=== PATIENT | male | born 2000 | race Caucasian/White ===

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

== ENCOUNTER 2021-07-01 14:04 | Emergency (ER) | payer OTHER ==
[~2021-07-01] VITALS: Ht 177.8 cm; Wt 87.3 kg
[2021-07-01] MEDS ORDERED: MORPHINE 4 MG/ML 1ML VIAL/SYRINGE (J2270) IV ONE (15:05)
[2021-07-01] MEDS ORDERED: ONDANSETRON 4MG/2ML VIAL IV ONE (15:05)
[2021-07-01] MEDS ORDERED: NS 1,000 ML IV ONE (15:30)
[2021-07-01 15:33] LABS: BASO # 0.1 10^3/uL (0.0-0.2); BASO % 0.7 % (0.0-1.0); EOS # 0.7 10^3/uL (0.0-0.5); EOS % 4.5 % (0.0-3.0); HEMATOCRIT 48.9 % (42.0-52.0); HEMOGLOBIN 16.8 g/dl (13.5-17.5); LYMPH # 1.5 10^3/uL (1.5-5.0); LYMPH % 10.3 % (24.0-44.0); MEAN CORPUSCULAR HEMOGLOBIN 30.7 pg (27.0-33.0); MEAN CORPUSCULAR HGB CONC 34.4 g/dl (32.0-36.5); MEAN CORPUSCULAR VOLUME 89.2 fl (80.0-96.0); MONO # 0.9 10^3/uL (0.0-0.8); MONO % 5.8 % (2.0-8.0); NEUTROPHILS # 11.7 10^3/uL (1.5-8.5); NEUTROPHILS % 78.2 % (36.0-66.0); PLATELET COUNT, AUTOMATED 255 10^3/uL (150-450); RED BLOOD COUNT 5.48 10^6/uL (4.30-6.10); WHITE BLOOD COUNT 14.9 10^3/uL (4.0-10.0)
[2021-07-01 15:48] LABS: ALBUMIN 4.3 GM/DL (3.2-5.2); ALT/SGPT 211 U/L (12-78); BILIRUBIN,DIRECT 0.1 MG/DL (0.0-0.2); BILIRUBIN,TOTAL 0.6 MG/DL (0.2-1.0); BLOOD UREA NITROGEN 16 MG/DL (7-18); CALCIUM LEVEL 9.5 MG/DL (8.5-10.1); CARBON DIOXIDE LEVEL 25 MEQ/L (21-32); CHLORIDE LEVEL 106 MEQ/L (98-107); CREATININE FOR GFR 0.79 MG/DL (0.70-1.30); GLUCOSE, FASTING 107 MG/DL (70-100); LIPASE 68 U/L (73-393); POTASSIUM SERUM 4.1 MEQ/L (3.5-5.1); SODIUM LEVEL 138 MEQ/L (136-145); TOTAL PROTEIN 7.6 GM/DL (6.4-8.2)
[2021-07-01] MEDS ORDERED: ISOVUE-370 76% 100ML VIAL As Ordered ONE (15:57)
[2021-07-01 17:32] LABS: MONO SCRN NEGATIVE (NEGATIVE)
[2021-07-01] MEDS ORDERED: ONDA4TAB6 PO (18:01)
[2021-07-01 18:09] LABS: RSV AMPLIFICATION NEGATIVE (NEGATIVE)
[2021-07-01 18:12] VITALS: BP 121/70
[2021-07-02 08:49] LABS: HEPATITIS B SURFACE ANTIGEN NEGATIVE (NEGATIVE)
[2021-07-02 09:17] LABS: HEPATITIS C VIRUS ABY INDEX 0.2 INDEX (<0.8)
[2021-07-02 09:18] LABS: HEPATITIS B CORE ANTIBODY IGM NEGATIVE (NEGATIVE)
== END 2021-07-01 18:14 | disposition home or self-care (01) ==
LOC: M ED 14:04
DX: R94.5 Abnormal results of liver function studies (principal); K56.7 Ileus, unspecified; J45.909 Unspecified asthma, uncomplicated; F41.9 Anxiety disorder, unspecified; F31.89 Other bipolar disorder; F90.9 Attention-deficit hyperactivity disorder, unspecified type; K90.0 Celiac disease; F12.10 Cannabis abuse, uncomplicated
CPT/HCPCS: 74177; 80047; 80048; 80076; 81001; 83690; 85025; 86308; 86705; 86709; 86803; 87340; 87631; 96361; 96374; 99284; J2405; Q9967

== ENCOUNTER 2022-01-23 17:12 | Emergency (ER) | payer OTHER ==
[~2022-01-23] VITALS: Ht 177.8 cm; Wt 78.4 kg
[~2022-01-23 17:12] MED LIST changes: +ONDA4TAB6 PO
[2022-01-23] MEDS ORDERED: PARO5TAB (17:22)
[2022-01-23] MEDS ORDERED: ESCITALOPRAM (17:22)
[2022-01-23 19:46] LABS: BASO # 0.1 10^3/uL (0.0-0.2); BASO % 0.5 % (0.0-1.0); EOS # 0.1 10^3/uL (0.0-0.5); EOS % 0.8 % (0.0-3.0); HEMATOCRIT 41.5 % (42.0-52.0); HEMOGLOBIN 14.7 g/dl (13.5-17.5); LYMPH # 1.7 10^3/uL (1.5-5.0); LYMPH % 13.6 % (24.0-44.0); MEAN CORPUSCULAR HEMOGLOBIN 31.1 pg (27.0-33.0); MEAN CORPUSCULAR HGB CONC 35.4 g/dl (32.0-36.5); MEAN CORPUSCULAR VOLUME 87.9 fl (80.0-96.0); MONO # 0.8 10^3/uL (0.0-0.8); MONO % 6.6 % (2.0-8.0); NEUTROPHILS # 9.7 10^3/uL (1.5-8.5); PLATELET COUNT, AUTOMATED 287 10^3/uL (150-450); RED BLOOD COUNT 4.72 10^6/uL (4.30-6.10); WHITE BLOOD COUNT 12.5 10^3/uL (4.0-10.0)
[2022-01-23 20:28] LABS: ALBUMIN 4.7 GM/DL (3.2-5.2); ALT/SGPT 20 U/L (12-78); BILIRUBIN,DIRECT 0.3 MG/DL (0.0-0.2); BILIRUBIN,TOTAL 1.3 MG/DL (0.2-1.0); BLOOD UREA NITROGEN 17 MG/DL (7-18); CARBON DIOXIDE LEVEL 22 MEQ/L (21-32); CHLORIDE LEVEL 105 MEQ/L (98-107); CREATININE FOR GFR 0.98 MG/DL (0.70-1.30); GLUCOSE, FASTING 84 MG/DL (70-100); LIPASE 75 U/L (73-393); SODIUM LEVEL 137 MEQ/L (136-145)
[2022-01-23] MEDS ORDERED: PRIL20TA2 PO (22:10)
[2022-01-23 22:15] VITALS: BP 139/80
== END 2022-01-23 22:16 | disposition home or self-care (01) ==
LOC: M ED 17:12
DX: R10.9 Unspecified abdominal pain (principal); I10 Essential (primary) hypertension; Z91.02 Food additives allergy status

== ENCOUNTER 2022-01-26 11:42 | Emergency (ER) | payer OTHER ==
[~2022-01-26 11:42] MED LIST changes: +ESCITALOPRAM; +PARO5TAB; +PRIL20TA2 PO
[2022-01-26 12:44] LABS: BASO # 0.1 10^3/uL (0.0-0.2); BASO % 0.9 % (0.0-1.0); EOS # 0.1 10^3/uL (0.0-0.5); EOS % 2.2 % (0.0-3.0); HEMATOCRIT 43.6 % (42.0-52.0); HEMOGLOBIN 15.1 g/dl (13.5-17.5); LYMPH # 1.1 10^3/uL (1.5-5.0); LYMPH % 17.8 % (24.0-44.0); MEAN CORPUSCULAR HEMOGLOBIN 30.9 pg (27.0-33.0); MEAN CORPUSCULAR HGB CONC 34.6 g/dl (32.0-36.5); MEAN CORPUSCULAR VOLUME 89.2 fl (80.0-96.0); MONO # 0.6 10^3/uL (0.0-0.8); MONO % 9.2 % (2.0-8.0); NEUTROPHILS # 4.5 10^3/uL (1.5-8.5); NEUTROPHILS % 69.4 % (36.0-66.0); PLATELET COUNT, AUTOMATED 257 10^3/uL (150-450); RED BLOOD COUNT 4.89 10^6/uL (4.30-6.10); WHITE BLOOD COUNT 6.4 10^3/uL (4.0-10.0)
[2022-01-26 13:38] LABS: ALBUMIN 4.7 GM/DL (3.2-5.2); ALT/SGPT 24 U/L (12-78); BILIRUBIN,DIRECT 0.2 MG/DL (0.0-0.2); BILIRUBIN,TOTAL 0.7 MG/DL (0.2-1.0); BLOOD UREA NITROGEN 15 MG/DL (7-18); CALCIUM LEVEL 9.8 MG/DL (8.5-10.1); CARBON DIOXIDE LEVEL 27 MEQ/L (21-32); CHLORIDE LEVEL 105 MEQ/L (98-107); CREATININE FOR GFR 1.03 MG/DL (0.70-1.30); GLUCOSE, FASTING 102 MG/DL (70-100); LIPASE 116 U/L (73-393); POTASSIUM SERUM 4.1 MEQ/L (3.5-5.1); SODIUM LEVEL 135 MEQ/L (136-145); TOTAL PROTEIN 8.6 GM/DL (6.4-8.2)
[2022-01-26] MEDS ORDERED: ISOVUE-370 76% 100ML VIAL As Ordered ONE (13:44)
[2022-01-26 14:41] VITALS: BP 124/69
== END 2022-01-26 14:43 | disposition home or self-care (01) ==
LOC: M ED 11:42
DX: R10.9 Unspecified abdominal pain (principal); Z87.19 Personal history of other diseases of the digestive system; F41.9 Anxiety disorder, unspecified; F32.9 Major depressive disorder, single episode, unspecified; F90.9 Attention-deficit hyperactivity disorder, unspecified type; Z79.899 Other long term (current) drug therapy
CPT/HCPCS: 71046; 74177; 80048; 80076; 83690; 85025; 93005; 93041; 99284; Q9967

== ENCOUNTER 2022-01-28 16:24 | Emergency (ER) | payer OTHER ==
[~2022-01-28] VITALS: Ht 177.8 cm; Wt 76.8 kg
[2022-01-28 16:25] VITALS: BP 141/91
== END 2022-01-28 17:32 | disposition left against medical advice (07) ==
LOC: M ED 16:24
DX: Z53.21 Procedure and treatment not carried out due to patient leaving prior to being seen by health care provider (principal)

== ENCOUNTER 2022-05-22 20:23 | Emergency (ER) | payer OTHER ==
[~2022-05-22] VITALS: Ht 177.8 cm; Wt 86.9 kg
[2022-05-22 20:23] VITALS: BP 136/67
[~2022-05-22 20:23] MED LIST changes: +NYST-38 PO; -NYST50SS PO
== END 2022-05-22 22:54 | disposition left against medical advice (07) ==
LOC: M ED 20:23
DX: Z53.21 Procedure and treatment not carried out due to patient leaving prior to being seen by health care provider (principal)

== ENCOUNTER 2023-08-03 23:56 | Emergency (ER) | payer OTHER ==
[~2023-08-03] VITALS: Ht 177.8 cm; Wt 96.5 kg
[~2023-08-03 23:56] MED LIST changes: +CARA1TAB6 PO
[2023-08-03 23:57] VITALS: BP 139/68; TEMP 98; O2SAT 97
== END 2023-08-04 02:06 | disposition left against medical advice (07) ==
LOC: M ED 23:56
DX: Z53.21 Procedure and treatment not carried out due to patient leaving prior to being seen by health care provider (principal)

== ENCOUNTER 2023-11-11 14:26 | Emergency (ER) | payer OTHER ==
[~2023-11-11] VITALS: Ht 180.3 cm; Wt 87.5 kg
[~2023-11-11 14:26] MED LIST changes: +ONDA-282 PO; -ONDA4TAB6 PO
[2023-11-11 14:27] VITALS: BP 131/72; TEMP 98.2; O2SAT 98
== END 2023-11-11 16:00 | disposition left against medical advice (07) ==
LOC: M ED 14:26
DX: Z53.21 Procedure and treatment not carried out due to patient leaving prior to being seen by health care provider (principal)

== ENCOUNTER 2023-12-29 08:52 | Emergency (ER) | payer OTHER ==
[~2023-12-29] VITALS: Ht 177.8 cm; Wt 85.6 kg
[2023-12-29 09:02] VITALS: BP 132/68; TEMP 97.1; O2SAT 99
[2023-12-29] MEDS ORDERED: ISOVUE-370 76% 100ML VIAL As Ordered ONE (10:08)
== END 2023-12-29 12:02 | disposition home or self-care (01) ==
LOC: EDBD 08:52 → M ED 08:52
DX: T71.193A Asphyxiation due to mechanical threat to breathing due to other causes, assault, initial encounter (principal); K21.9 Gastro-esophageal reflux disease without esophagitis
CPT/HCPCS: 70450; 70498; 80047; 99284; Q9967

== ENCOUNTER 2024-06-29 13:33 | Emergency (ER) | payer OTHER ==
[~2024-06-29] VITALS: Ht 177.8 cm; Wt 113.6 kg
[2024-06-29 15:01] VITALS: BP 141/97; TEMP 98.6; O2SAT 100
== END 2024-06-29 15:08 | disposition left against medical advice (07) ==
LOC: M ED 13:33
DX: Z53.21 Procedure and treatment not carried out due to patient leaving prior to being seen by health care provider (principal)

== ENCOUNTER 2024-10-30 07:52 | Emergency (ER) | payer OTHER ==
[~2024-10-30] VITALS: Ht 177.8 cm; Wt 112.9 kg
[2024-10-30 07:58] VITALS: TEMP 98.1
[2024-10-30] MEDS ORDERED: ACET500P3 PO (08:06)
[2024-10-30] MEDS: KETOROLAC 30 MG/ML 1 ML VIAL IM ONE (11:07)
[2024-10-30] MEDS: CYCLOBENZAPRINE 5 MG TABLET PO ONE (11:08)
[2024-10-30 11:37] VITALS: BP 133/74
[2024-10-30 11:47] LABS: KETONE, URINE AUTO RFX NEGATIVE (NEGATIVE); LEUKOCYTE ESTERASE UR AUTO RFX NEGATIVE (NEGATIVE); MUCUS, URINE RFX SMALL (NEGATIVE); NITRITE, URINE AUTO RFX NEGATIVE (NEGATIVE); RBC, URINE AUTO RFX 1 /HPF (0-3); SQUAM EPITHELIAL CELL UR AURFX 0 /HPF (0-6); WBC, URINE AUTO RFX 1 /HPF (0-3)
[2024-10-30 13:22] VITALS: O2SAT 97
[2024-10-30] MEDS ORDERED: MEDR4PAK PO (13:41)
[2024-10-30] MEDS ORDERED: CYCL-707 PO (13:41)
== END 2024-10-30 14:27 | disposition home or self-care (01) ==
LOC: M ED 07:52
DX: M54.50 Low back pain, unspecified (principal); D17.1 Benign lipomatous neoplasm of skin and subcutaneous tissue of trunk; F90.9 Attention-deficit hyperactivity disorder, unspecified type; J45.909 Unspecified asthma, uncomplicated
CPT/HCPCS: 71046; 72110; 76604; 81001; 96372; 99284; J1885

== ENCOUNTER 2025-02-22 02:44 | Emergency (ER) | payer OTHER ==
[~2025-02-22] VITALS: Ht 177.8 cm; Wt 115.4 kg
[~2025-02-22 02:44] MED LIST changes: +ACET500P3 PO; +CYCL-707 PO; -IBUP-1022 PO; +IBUP600T42 PO; +MEDR4PAK PO
[2025-02-22] MEDS ORDERED: HOME MED LIST COMPLETE! XX SCH (07:55)
[2025-02-22 08:19] LABS: BASO # 0.1 10^3/uL (0.0-0.2); BASO % 0.8 % (0.0-1.0); EOS # 0.3 10^3/uL (0.0-0.5); EOS % 3.8 % (0.0-3.0); LYMPH # 2.3 10^3/uL (1.5-5.0); LYMPH % 30.0 % (24.0-44.0); MONO # 0.6 10^3/uL (0.0-0.8); MONO % 8.0 % (2.0-8.0); NEUTROPHILS # 4.4 10^3/uL (1.5-8.5); NEUTROPHILS % 56.6 % (36.0-66.0); PLATELET COUNT, AUTOMATED 240 10^3/uL (150-450)
[2025-02-22 08:45] LABS: CALCIUM LEVEL 8.6 MG/DL (8.5-10.1); CARBON DIOXIDE LEVEL 27 MMOL/L (20-31); CHLORIDE LEVEL 107 MMOL/L (98-107); CREATININE FOR GFR 0.89 MG/DL (0.70-1.30); GLOMERULAR FILTRATION RATE > 90.0 (>60); POTASSIUM SERUM 4.2 MMOL/L (3.5-5.1); SODIUM LEVEL 143 MMOL/L (136-145)
[2025-02-22 09:01] VITALS: BP 145/91; TEMP 98.3; O2SAT 97
[2025-02-22] MEDS: KETOROLAC 60 MG/2 ML VIAL IM ONE (09:08)
== END 2025-02-22 09:18 | disposition home or self-care (01) ==
LOC: M ED 02:44
DX: D24.1 Benign neoplasm of right breast (principal); F90.9 Attention-deficit hyperactivity disorder, unspecified type; F31.9 Bipolar disorder, unspecified
CPT/HCPCS: 76604; 80048; 85025; 96374; 99284; J1885